=== PATIENT | female | born 1950 | race Caucasian/White ===

== ENCOUNTER 2023-01-28 03:39 | Inpatient (IN) | payer MEDICARE, OTHER ==
[2023-01-28] MEDS ORDERED: SODIUM CHLORIDE 0.9% 1,000 ML IV ONE (03:55)
[2023-01-28] MEDS ORDERED: MORPHINE SULFATE 4 MG/ML SYRINGE IV STA (03:55)
[2023-01-28] MEDS ORDERED: MORPHINE SULFATE 4 MG/ML SYRINGE IVP STA (03:55)
[2023-01-28 04:18] LABS: Basophils % (A) 0 %; Eosinophils # (A) 0.4 k/uL (0-0.7); Eosinophils % (A) 2 %; HCT 35.3 % (34.0-46.0); HGB 11.7 gm/dL (11.4-16.0); Lymphocytes # (A) 1.7 k/uL (1.0-4.8); Lymphocytes % (A) 8 %; MCH 31.6 pg (25.0-35.0); MCHC 33.1 g/dL (31.0-37.0); MCV 95.5 fL (80.0-100.0); Monocytes # (A) 0.8 k/uL (0-1.0); Monocytes % (A) 4 %; Neutrophils # (A) 18.8 k/uL (1.3-7.7); Neutrophils % (A) 86 %; Platelet Count 286 k/uL (150-450); RDW 12.5 % (11.5-15.5); WBC 21.8 k/uL (3.8-10.6)
[2023-01-28 04:30] LABS: African American GFR (CKD) >90 (>60 ml/min/1.73 sqM); Anion Gap 6 mmol/L; Blood Urea Nitrogen 13 mg/dL (7-17); Carbon Dioxide 26 mmol/L (22-30); Chloride 106 mmol/L (98-107); Glucose 210 mg/dL (74-99); Non-African American GFR(CKD) >90 (>60 ml/min/1.73 sqM); Potassium 3.6 mmol/L (3.5-5.1); Sodium 138 mmol/L (137-145)
[2023-01-28 04:33] LABS: Prothrombin Time 10.2 sec (9.0-12.0)
[2023-01-28 04:58] LABS: Partial Thromboplastin Time 19.4 sec (22.0-30.0)
[2023-01-28] MEDS ORDERED: CYCLOBENZAPRINE 5 MG TAB PO STA (05:00)
[2023-01-28] MEDS ORDERED: NALOXONE 0.4 MG/ML 1 ML VIAL IV PRN ×2 (05:25→11:01)
[2023-01-28] MEDS ORDERED: MORPHINE SULFATE 4 MG/ML SYRINGE IV PRN (05:25)
--- NOTE | 2023-01-28 05:31 | ED ---
General Adult HPI - General Chief complaint: Fall Stated complaint: Fall Time Seen by Provider: 01/28/23 03:44 Source: patient, EMS, RN notes reviewed, old records reviewed Mode of arrival: EMS Limitations: no limitations - History of Present Illness Initial comments: Patient is a 73-year-old female with past medical history remarkable for hypertension who presents emergency Department following a mechanical fall. States she tripped and lost her balance and fell onto her left side. Currently complaining of left shoulder and left hip pain. Did not hit her head. No loss consciousness. No other pain at this time. Is not on blood thinners. Presents over concern for injury to the left shoulder and left hip. Denies syncopal episode. Denies any lightheadedness. Denies chest pain, shortness of breath, abdominal pain, nausea, vomiting, urinary complaints. No fevers or sick contacts. - Related Data Allergies Allergy/AdvReac Type Severity Reaction Status Date / Time No Known Allergies Allergy Verified 01/28/23 03:49 Review of Systems ROS Statement: Those systems with pertinent positive or pertinent negative responses have been documented in the HPI. Review of Systems: CONST: Denies fever EYES: Denies blurry vision ENT: Denies nasal congestion C/V: Denies Chest pain RESP: Denies shortness of breath GI: Denies abdominal pain : Denies dysuria SKIN: Denies rash. MSK: Endorses left shoulder pain, left hip pain. NEURO: Denies headache ROS Other: All systems not noted in ROS Statement are negative. Past Medical History Past Medical History: Diabetes Mellitus, Hypertension History of Any Multi-Drug Resistant Organisms: None Reported Past Surgical History: Hysterectomy Additional Past Surgical History / Comment(s): Shakira Past Psychological History: No Psychological Hx Reported Smoking Status: Never smoker Past Alcohol Use History: None Reported Past Drug Use History: None Reported General Exam - General Exam Comments Initial Comments: General: Appears in moderate distress secondary to pain. HEAD: Normal with no signs of head trauma. EYES: PERRLA, EOMI, conjunctiva normal, no discharge. ENT: Hearing grossly intact, normal oropharynx. RESPIRATORY: Clear breath sounds bilaterally. No wheezes, rales, or rhonchi. C/V: Regular rate and rhythm. S1 and S2 auscultated, peripheral pulses 2+ and intact throughout ABD: Abd is soft, nontender, nondistended EXT: Decreased range of motion of left shoulder and left hip secondary to pain. Left lower extremity is externally rotated and shortened. No open fracture. Left shoulder has what appears to be a deformity near the humeral head. Tenderness to palpation here. Reduced range of motion secondary to a. Neurovascular intact in both extremities. SKIN: No rashes or lesions observed on exposed skin. NEURO: Alert and oriented 4. No focal sensory strength deficits. Limitations: no limitations Course Vital Signs 01/28/23 01/28/23 03:42 04:30 Temperature 98.7 F Pulse Rate 72 77 Respiratory 20 19 Rate Blood Pressure 187/89 148/86 O2 Sat by Pulse 96 93 L Oximetry Medical Decision Making - Medical Decision Making Was pt. sent in by a medical professional or institution (, PA, PROCUREMENT CLERK, urgent care, hospital, or fdc...) When possible be specific @ -No Did you speak to anyone other than the patient for history (EMS, parent, family, police, friend...)? What history was obtained from this source @ -No Did you review nursing and triage notes (agree or disagree)? Why? @ -I reviewed and agree with nursing and triage notes Were old charts reviewed (outside hosp., previous admission, EMS record, old EKG, old radiological studies, urgent care reports/EKG's, fdc records)? Report findings @ -No old charts were reviewed Differential Diagnosis (chest pain, altered mental status, abdominal pain women, abdominal pain men, vaginal bleeding, weakness, fever, dyspnea, syncope, headache, dizziness, GI bleed, back pain, seizure, CVA, palpatations, mental health, musculoskeletal)? @ -Differential Musculoskeletal Muscular strain, contusion, ligament sprain, fracture, arthritis, septic arthritis, bursitis, cellulitis, muscle spasm, nerve compression, DVT, arterial occlusion, herpes zoster, electrolyte abnormality, tumor.... This is not meant to be in all inclusive list EKG interpreted by me (3pts min.). @ -As above X-rays interpreted by me (1pt min.). @ -Chest x-ray, left hip x-ray remarkable for what appears to be a left intertrochanteric fracture as well as a comminuted left humeral head fracture. CT interpreted by me (1pt min.). @ -None done U/S interpreted by me (1pt. min.). @ -None done What testing was considered but not performed or refused? (CT, X-rays, U/S, labs)? Why? @ -None What meds were considered but not given or refused? Why? @ -None Did you discuss the management of the patient with other professionals (professionals i.e. , PA, PROCUREMENT CLERK, lab, RT, psych nurse, social service technician, copier operator, teacher, correctional security officer, rifle case repairer)? Give summary @ -Discussed the case with on-call orthopedics Dr. Mario who accepted the admission and requested CT imaging for operative planning. Discuss the case with Dr. Araya of medicine who accepted consult Was smoking cessation discussed for >3mins.? @ -No Was critical care preformed (if so, how long)? @ -No Were there social determinants of health that impacted care today? How? (Homelessness, low income, unemployed, alcoholism, drug addiction, transpo rtation, low edu. Level, literacy, decrease access to med. care, nursing home, rehab)? @ -No Was there de-escalation of care discussed even if they declined (Discuss DNR or withdrawal of care, Hospice)? DNR status @ -No What co-morbidities impacted this encounter? (DM, HTN, Smoking, COPD, CAD, Cancer, CVA, ARF, Chemo, Hep., AIDS, mental health diagnosis, sleep apnea, morbid obesity)? @ -None Was patient admitted / discharged? Hospital course, mention meds given and route, prescriptions, significant lab abnormalities, going to OR and other pertinent info. @ -Patient presents with a mechanical fall at home. Does not meet trauma criteria. His thinners. No loss of consciousness. CT imaging is required at this time. No head trauma. However we will obtain plain films of the left shoulder, left hip. She was in agreement with this plan. Basic labs also be obtained. Vital signs except for limits. Imaging remarkable for what appears to be a comminuted left humeral head fracture as well as a left intertrochanteric fracture. Labs are remarkable for a leukocytosis of 21 with no clear etiology and could be reactive. We will check a urine on her. She was in agreement with this plan. We discussed results and she expressed understanding. She requires admission for operative repair. Patient made nothing by mouth. I spoke with on-call orthopedics Dr. Mario who accepted the patient under his service and requested CT imaging for operative planning which was ordered and is still pending at this time. I spoke with the medicine neon technician Dr. Araya who accepted the patient is a consult. Patient admitted in stable condition. Undiagnosed new problem with uncertain prognosis? @ -No Drug Therapy requiring intensive monitoring for toxicity (Heparin, Nitro, Insulin, Cardizem)? @ -No Were any procedures done? @ -No Diagnosis/symptom? @ -Fall, left humeral head fracture, left intertrochanteric fracture Acute, or Chronic, or Acute on Chronic? @ -Acute Uncomplicated (without systemic symptoms) or Complicated (systemic symptoms)? @ -Complicated Side effects of treatment? @ -No Exacerbation, Progression, or Severe Exacerbation? @ -No Poses a threat to life or bodily function? How? (Chest pain, USA, SD, pneumonia, PE, COPD, DKA, ARF, appy, cholecystitis, CVA, Diverticulitis, Homicidal, Suicidal, threat to staff... and all critical care pts) @ -yes - Lab Data Result diagrams: 01/28/23 04:02 01/28/23 04:02 Lab Results 01/28/23 01/28/23 01/28/23 Range/Units 04:02 04:02 04:02 WBC 21.8 H (3.8-10.6) k/uL RBC 3.70 L (3.80-5.40) m/uL Hgb 11.7 (11.4-16.0) gm/dL Hct 35.3 (34.0-46.0) % MCV 95.5 (80.0-100.0) fL MCH 31.6 (25.0-35.0) pg MCHC 33.1 (31.0-37.0) g/dL RDW 12.5 (11.5-15.5) % Plt Count 286 (150-450) k/uL MPV 8.0 Neutrophils % 86 % Lymphocytes % 8 % Monocytes % 4 % Eosinophils % 2 % Basophils % 0 % Neutrophils # 18.8 H (1.3-7.7) k/uL Lymphocytes # 1.7 (1.0-4.8) k/uL Monocytes # 0.8 (0-1.0) k/uL Eosinophils # 0.4 (0-0.7) k/uL Basophils # 0.0 (0-0.2) k/uL PT 10.2 (9.0-12.0) sec INR 1.0 (<1.2) APTT 19.4 L (22.0-30.0) sec Sodium 138 (137-145) mmol/L Potassium 3.6 (3.5-5.1) mmol/L Chloride 106 (98-107) mmol/L Carbon Dioxide 26 (22-30) mmol/L Anion Gap 6 mmol/L BUN 13 (7-17) mg/dL Creatinine 0.52 (0.52-1.04) mg/dL Est GFR (CKD-EPI)AfAm >90 (>60 ml/min/1.73 sqM) Est GFR (CKD-EPI)NonAf >90 (>60 ml/min/1.73 sqM) Glucose 210 H (74-99) mg/dL Calcium 9.0 (8.4-10.2) mg/dL Blood Type Blood Type Confirm Blood Type Recheck Bld Type Recheck Status Antibody Screen Spec Expiration Date 01/28/23 01/28/23 Range/Units 04:02 04:25 WBC (3.8-10.6) k/uL RBC (3.80-5.40) m/uL Hgb (11.4-16.0) gm/dL Hct (34.0-46.0) % MCV (80.0-100.0) fL MCH (25.0-35.0) pg MCHC (31.0-37.0) g/dL RDW (11.5-15.5) % Plt Count (150-450) k/uL MPV Neutrophils % % Lymphocytes % % Monocytes % % Eosinophils % % Basophils % % Neutrophils # (1.3-7.7) k/uL Lymphocytes # (1.0-4.8) k/uL Monocytes # (0-1.0) k/uL Eosinophils # (0-0.7) k/uL Basophils # (0-0.2) k/uL PT (9.0-12.0) sec INR (<1.2) APTT (22.0-30.0) sec Sodium (137-145) mmol/L Potassium (3.5-5.1) mmol/L Chloride (98-107) mmol/L Carbon Dioxide (22-30) mmol/L Anion Gap mmol/L BUN (7-17) mg/dL Creatinine (0.52-1.04) mg/dL Est GFR (CKD-EPI)AfAm (>60 ml/min/1.73 sqM) Est GFR (CKD-EPI)NonAf (>60 ml/min/1.73 sqM) Glucose (74-99) mg/dL Calcium (8.4-10.2) mg/dL Blood Type B Positive Blood Type Confirm B Positive Blood Type Recheck No Previous Record Bld Type Recheck Status CABO Indicated Antibody Screen NEGATIVE Spec Expiration Date 01/31/2023 - 2301 - EKG Data -: EKG Interpreted by Me EKG Comments: 12-lead Electrocardiogram Interpretation Note EKG was reviewed and interpreted by myself. 12-lead ECG performed at 0343 is interpreted by me as revealing normal sinus rhythm at a rate of 72 beats per minute. [place] is normal. SC interval is 150 ms, QRS duration is 93 ms, QTc is 420 ms.. There were no ST or T wave abnormalities to suggest myocardial ischemia or injury. R wave progression across the precordium was satisfactory. By my interpretation this EKG is non-diagnostic for acute ischemia. Disposition Clinical Impression: Fall, Fracture of head of left humerus, Intertrochanteric fracture of left hip Disposition: ADMITTED IP TO THIS HOSP Condition: Serious Time of Disposition: 05:28
--- NOTE | 2023-01-28 06:17 | XR ---
EXAMINATION TYPE: XR chest 1V DATE OF EXAM: 01/28/2023 4:24 AM COMPARISON: None TECHNIQUE: XR chest 1V Frontal view of the chest. CLINICAL INDICATION:Female, 73 years old with history of fall; FINDINGS: Lungs/Pleura: There is no evidence of pleural effusion, focal consolidation, or pneumothorax. Pulmonary vascularity: Pulmonary vascular congestion. Heart/mediastinum: Cardiomediastinal silhouette is enlarged and stable. Musculoskeletal: No acute osseous pathology. IMPRESSION: Cardiomegaly and mild pulmonary vascular congestion. Correlate with BNP for congestive heart failure.
--- NOTE | 2023-01-28 06:21 | XR ---
EXAMINATION TYPE: XR shoulder limited LT DATE OF EXAM: 01/28/2023 4:24 AM INDICATION: Patient age:Female; 73 years old; Reason for study: fall; COMPARISON: CT left shoulder of the same date. TECHNIQUE: The left shoulder was examined in AP and lateral projections. FINDINGS: Acute mildly displaced comminuted fracture of the left proximal humerus at the neck with extension in to the greater tuberosity. There is approximately 1.9 cm of shortening. Additionally there is a minim ally displaced fracture of the inferior aspect of the glenoid with lucent line identified and better appreciated on CT. No dislocation. AC joint appears intact mild arthropathy. Mild surrounding soft ti ssue edema. Pulmonary vascular congestion identified within the visualized portions of the chest. IMPRESSION: 1. Acute mildly displaced comminuted fracture of the left proximal humerus. 2. Acute minimally displaced fracture inferior aspect of glenoid.
--- NOTE | 2023-01-28 06:25 | CT ---
EXAMINATION TYPE: CT shoulder LT wo con CT DLP: 336 mGycm, Automated exposure control for dose reduction was used. DATE OF EXAM: 01/28/2023 5:47 AM COMPARISON: Left shoulder radiograph the same date. CLINICAL INDICATION:Female, 73 years old with history of fracture; [facility], TECHNIQUE: Axial images were obtained of the left shoulder without the use of IV contrast. Additiona l coronal and sagittal reformatted images and soft tissue and bone window were obtained for review. 3 -D reconstruction was created on a separate workstation. FINDINGS: Acute mildly displaced comminuted fracture of the proximal humeral neck with approximately 8 mm of shortening. No dislocation. Fracture extends into the greater tuberosity. There is surroundin g edema. Additional mildly displaced comminuted fracture of the inferior glenoid identified. Moderate AC joint arthropathy with joint space narrowing, subchondral cystic change, and capsular hypertrophy . There is some inferior spurring demonstrated. The visualized portions of the chest are unremarkable. IMPRESSION: 1. Acute mildly displaced comminuted fracture of the left proximal humerus. 2. Acute moderately displaced, fracture of the left inferior glenoid. 3. Moderate AC joint arthropathy.
--- NOTE | 2023-01-28 06:27 | XR ---
EXAMINATION TYPE: XR Hip LT and AP Pelvis DATE OF EXAM: 01/28/2023 4:24 AM INDICATION: Patient age:Female; 73 years old; Reason for study: fall shortened leg; [facility]. COMPARISON: CT pelvis of the same date TECHNIQUE: The left hip was examined in the frontal and lateral projections and a AP pelvis. FINDINGS: Acute mildly displaced comminuted left proximal femoral intratrochanteric fracture. No disl ocation. Degenerative changes of the visualized lumbar spine. Pelvic phleboliths identified. Addition al degenerative changes of the pubic symphysis. IMPRESSION: Acute mildly displaced comminuted left proximal femoral intratrochanteric fracture.
--- NOTE | 2023-01-28 06:30 | CT ---
EXAMINATION TYPE: CT pelvis wo con CT DLP: 363.8 mGycm, Automated exposure control for dose reduction was used. DATE OF EXAM: 01/28/2023 5:49 AM COMPARISON: Left hip/pelvic radiograph 01/28/2023. CLINICAL INDICATION:Female, 73 years old with history of fracture; TECHNIQUE: Standard CT of the pelvis without IV or oral contrast. Lack of IV or oral contrast limit s evaluation of solid and hollow organ viscera. Coronal and sagittal reformats were performed. 3-D re formats were created on a separate workstation. FINDINGS: BLADDER: Unremarkable REPRODUCTIVE: The uterus is surgically absent. BOWEL: The appendix is within normal limits. Scattered diverticula particularly versus without eviden ce for acute diverticulitis. No evidence of bowel obstruction. PERITONEUM: No evidence of pneumoperitoneum or free fluid. VASCULATURE: Atherosclerotic calcification of the visualized aorta and its branches. Few pelvic phleb oliths. MUSCULOSKELETAL: Acute mildly displaced comminuted intratrochanteric fracture of the left proximal fe mur. Mild surrounding soft tissue edema. No dislocation. Degenerative changes of the pubic symphysis and bilateral SI joints. Mild osteophytic changes of the right hip. LYMPH NODES: No gross evidence for lymphadenopathy. SOFT TISSUE/ABDOMINAL WALL: Tiny fat filled umbilical hernia. IMPRESSION: Acute comminuted mildly displaced left proximal femur intratrochanteric fracture.
--- NOTE | 2023-01-28 06:46 | P.CONS ---
History of Present Illness - Reason for Consult Consult date: 01/28/23 preop clearance - Chief Complaint fall - History of Present Illness 73 year old female with hypertension , hypothyroid , DM coming in after an accidental fall, she tripped and fell hit her couch. denies any LOC, head injury , nausea , vomiting, seizure like activity , dizziness, shortness of breath or chest pain, but she could not get up . she is not on blood thinners. denies any history of falls. she presented complaining of left hip and shoulder pain , and found to have acute fracture of the left hip and shoulder denies smoking, illicit drugs or alcohol PMHX DM , HTN, hypothyroid review of systems Pertinent positives as noted in HPI. All other systems were reviewed and are n egative Constitutional: No acute distress, conversant, pleasant Eyes: Anicteric sclerae, moist conjunctiva, Pupils equal round reactive to light ENMT: NC/AT Oropharynx clear, no erythema, or exudates Neck: Supple, no masses, or JVD No carotid bruits No thyromegaly Lungs: Clear to auscultation Clear to percussion Normal respiratory effort, no accessory muscle use Cardiovascular: Heart regular in rate and rhythm, No murmurs, gallops, or rubs No peripheral edema Abdominal: Soft Nontender, no guarding, rebound or rigidity Abdomen moving with respiration Normoactive bowel sounds No hepatomegaly, No splenomegaly No palpable mass No abdominal wall hernia noted Skin: Normal temperature, tone, texture, turgor No induration No subcutaneous nodules No rash, lesions No ulcers Extremities: No digital cyanosis No clubbing Pedal pulses intact and symmetrical Radial pulses intact and symmetrical No calf tenderness Psychiatric: Alert and oriented to person, place and time Appropriate affect fair judgement Neuro Muscles Strength 5/5 in right upper and lower extremitiy , severe pain over the left side limiting exam Sensation to light touch grossly present throughout Cranial nerves II-XII grossly intact Lymphatics: no palpable cervical or supraclavicular lymph nodes Past Medical History Past Medical History: Diabetes Mellitus, Hypertension History of Any Multi-Drug Resistant Organisms: None Reported Past Surgical History: Hysterectomy Additional Past Surgical History / Comment(s): Whipple Past Psychological History: No Psychological Hx Reported Smoking Status: Never smoker Past Alcohol Use History: None Reported Past Drug Use History: None Reported Medications and Allergies Allergies Allergy/AdvReac Type Severity Reaction Status Date / Time No Known Allergies Allergy Verified 01/28/23 03:49 Physical Exam Vitals: Vital Signs Temp Pulse Resp BP Pulse Ox 01/28/23 05:00 65 18 150/97 100 01/28/23 04:30 77 19 148/86 93 L 01/28/23 03:42 98.7 F 72 20 187/89 96 Intake and Output 01/27/23 01/27/23 01/28/23 14:59 22:59 06:59 Other: Weight 68.039 kg Results CBC & Chem 7: 01/28/23 04:02 01/28/23 04:02 Labs: Abnormal Lab Results - Last 24 Hours (Table) 01/28/23 01/28/23 01/28/23 Range/Units 04:02 04:02 04:02 WBC 21.8 H (3.8-10.6) k/uL RBC 3.70 L (3.80-5.40) m/uL Neutrophils # 18.8 H (1.3-7.7) k/uL APTT 19.4 L (22.0-30.0) sec Glucose 210 H (74-99) mg/dL Assessment and Plan Assessment: 73 year old female with fracture of the left hip and shoulder, denies any recent hospital stay , denies any rcent episode of CHF, NH, seizures, arrhythmia . she is active at baseline >4 METS with no limitation related to chest pain or SOB. she has history of DM and Hypertension. patient can proceed to planned surgery of left shoulder and hip repair with moderate but acceptable perioperative cardiovascular risk with no modifiable risk factors at this time EKG and labs reviewed , blood work showed leukocytosis suspected to be reactive , no identifiable focus of infection imaging reviewed CT of the shoulder and pelvis showed fractures in both the left shoulder and hip renal function unremarkable Na 138, K 3.6, BUN 13 , Cr 0.5 hypertension continue atenolol 50 mg daily po DM hold oral hypoglycemic agent insulin sliding scale hypothyroid resume levothyroxin full code DVT PPX lovenox 40 mg sc daily thank you for this consultation
[2023-01-28] MEDS: SODIUM CHLORIDE 0.9% 1,000 ML IV SCH ×2 (06:50→17:00)
[2023-01-28] MEDS ORDERED: DEXTROSE 50% SYRINGE 50 ML IVP PRN ×2 (06:51)
[2023-01-28] MEDS: LEVOTHYROXINE 25 MCG TAB PO SCH (06:57)
[2023-01-28] MEDS: INSULIN ASPART (NovoLOG) 100 UNIT/ML VIAL SQ SCH ×5 (07:04→20:28)
[2023-01-28 07:59] LABS: Glucose,Whole Blood 147 mg/dL (70-110)
[2023-01-28] MEDS: HEPARIN SODIUM,PORCINE/PF 5,000 UNIT/0.5 ML SYRINGE SQ SCH ×2 (08:36→16:59)
--- NOTE | 2023-01-28 09:15 | P.HPOR ---
History of Present Illness H&P Date: 01/28/23 Chief Complaint: Left hip, left shoulder pain. This is a 73-year-old female who presented to the emergency department late last evening after falling and sustaining injury to her left hip and left shoulder. She states that her shoe got caught on the hardwood floor and she tripped. We will consult is for orthopedic evaluation of her left shoulder and left hip fractures. She is admitted to our service for surgical intervention and care. Past Medical History Past Medical History: Diabetes Mellitus, Hypertension History of Any Multi-Drug Resistant Organisms: None Reported Past Surgical History: Hysterectomy Additional Past Surgical History / Comment(s): Shakira Past Psychological History: No Psychological Hx Reported Smoking Status: Never smoker Past Alcohol Use History: None Reported Past Drug Use History: None Reported Medications and Allergies Allergies Allergy/AdvReac Type Severity Reaction Status Date / Time No Known Allergies Allergy Verified 01/28/23 03:49 Physical Examination This is a 73-year-old female in no acute distress. She is alert and oriented 3. Exam of the head neck reveal no obvious deformity. She has full cervical spine motion without difficulty or pain. Exam of the upper extremities reveals sling in place on the left. There is soft tissue swelling to the shoulder and upper arm on the left. She has full finger motion bilaterally. Neurovascular status to the upper extremities is intact. Exam of the lower extremities reveals shortening and external rotation to her left leg. She has full foot and ankle motion bilaterally. There is pain with any motion to the left leg. Neurovascular status to the lower extremities is intact. Results X-rays and CT of the pelvis and left hip reveal a minimally displaced intertrochanteric fracture of the left hip. No other fractures in the hip or pelvis are identified. X-rays and CT of the left shoulder reveal a comminuted proximal humerus fracture with avulsion of the radial tuberosity. There is also a minimally displaced glenoid fracture noted. - Labs Labs: Abnormal Lab Results - Last 24 Hours (Table) 01/28/23 01/28/23 01/28/23 Range/Units 04:02 04:02 04:02 WBC 21.8 H (3.8-10.6) k/uL RBC 3.70 L (3.80-5.40) m/uL Neutrophils # 18.8 H (1.3-7.7) k/uL APTT 19.4 L (22.0-30.0) sec Glucose 210 H (74-99) mg/dL POC Glucose (mg/dL) (70-110) mg/dL 01/28/23 Range/Units 07:57 WBC (3.8-10.6) k/uL RBC (3.80-5.40) m/uL Neutrophils # (1.3-7.7) k/uL APTT (22.0-30.0) sec Glucose (74-99) mg/dL POC Glucose (mg/dL) 147 H (70-110) mg/dL H & H 01/28/23 Range/Units 04:02 Hgb 11.7 (11.4-16.0) gm/dL Hct 35.3 (34.0-46.0) % Coagulation 01/28/23 Range/Units 04:02 INR 1.0 (<1.2) Result Diagrams: 01/28/23 04:02 01/28/23 04:02 Assessment and Plan (1) Fall Current Visit: Yes Status: Acute Code(s): W19.XXXA - UNSPECIFIED FALL, INITIAL ENCOUNTER SNOMED Code(s): 4962749 (2) Fracture of head of left humerus Current Visit: Yes Status: Acute Code(s): S42.292A - OTH DISP FX OF UPPER END OF LEFT HUMERUS, INIT FOR CLOS FX SNOMED Code(s): 848353539 (3) Intertrochanteric fracture of left hip Current Visit: Yes Status: Acute Code(s): S72.142A - DISPLACED INTERTROCHANTERIC FRACTURE OF LEFT FEMUR, INIT SNOMED Code(s): 169505033 (4) Fracture of glenoid process of left scapula Current Visit: Yes Status: Acute Code(s): S42.142A - DISP FX OF GLENOID CAV ITY OF SCAPULA, LEFT SHOULDER, INIT SNOMED Code(s): 5064357 Plan: The clinical and x-ray/computed tomography scan findings are discussed with the patient. We will take her to surgery today for intertrochanteric nail insertion total left hip. It is recommended she be seen by a traumatologist for the shoulder fracture within the next couple of weeks. We will fix her hip today and plan discharged to home early this week and arrange for follow-up regarding the shoulder.
[2023-01-28] MEDS ORDERED: IV FLUID CONTINUATION 1,000 ML IV ONE (09:33)
[2023-01-28] MEDS ORDERED: SODIUM CHLORIDE 0.9% 50 ML with ceFAZolin 2,000 MG IV ONE ×2 (09:33)
[2023-01-28] MEDS ORDERED: NEOSTIGMINE 1 MG/ML 10 ML VIAL ONE (09:37)
[2023-01-28] MEDS ORDERED: PROPOFOL 10 MG/ML 20 ML VIAL IV ONE (09:37)
[2023-01-28] MEDS ORDERED: LIDOCAINE 2% INJ 20 MG/ML (2 ML VIAL) ONE (09:37)
[2023-01-28] MEDS ORDERED: fentaNYL (PF) 50 MCG/ML 2 ML AMP ONE (09:37)
[2023-01-28] MEDS ORDERED: ROCURONIUM 10 MG/ML (5 ML VIAL) IV ONE (09:37)
[2023-01-28] MEDS ORDERED: MIDAZOLAM 2 MG/2 ML VIAL ONE (09:37)
[2023-01-28] MEDS ORDERED: PHENYLEPHRINE-0.9% NACL SYG 1,000 MCG/10 ML SYRINGE ONE (09:37)
[2023-01-28] MEDS ORDERED: ceFAZolin 1,000 MG VIAL ONE (09:37)
[2023-01-28] MEDS ORDERED: GLYCOPYRROLATE 0.2 MG/ML 2 ML VIAL ONE (09:37)
[2023-01-28] MEDS ORDERED: SODIUM CHLORIDE 0.9% 100 ML BAG ONE (09:37)
[2023-01-28] MEDS ORDERED: SUCCINYLCHOLINE CHLORIDE 200 MG/10 ML VIAL IV ONE (09:37)
--- NOTE | 2023-01-28 10:31 | P.OP ---
Date of Procedure: 01/28/23 Procedure(s) Performed: PREOPERATIVE DIAGNOSIS: Left hip intertrochanteric fracture. POSTOPERATIVE DIAGNOSIS: Left hip intertrochanteric fracture. OPERATION: Left hip intertrochanteric fracture closed reduction and intramedullary nailing using Synthes IT nail. LINEN TECH: Shila Loza PA-C (Assistance with: Patient positioning, retraction, exposure, hemostasis, fixation, irrigation, closure, dressing) ANESTHESIA: General ESTIMATED BLOOD LOSS: 50 mL. COMPLICATIONS: None OPERATIVE FINDINGS: See dictation INDICATIONS: Maribel is a 73-year-old female with a history of left intertrochanteric fracture due to a fall. She also has a comminuted fracture of the ipsilateral proximal humerus and glenoid. The patient presents to the operating room today for closed reduction and intramedullary nailing of the hip fracture. I discussed the risks of surgery in detail as being inclusive of but not limited to: Bleeding, infection, scarring, discomfort, blood vessel and/or nerve damage, need for further surgery, malunion, nonunion, gait disturbance including persistent or permanent limp, limb length inequality, arthritis, hardware failure, blood clot, pulmonary embolism, , and other risks. The consent form has been signed. PROCEDURE: After appropriate consent was obtained, the patient was taken to the operating room and placed in supine position. Gen. anesthetic was administered and after confirmation of adequate anesthesia, the patient was carefully placed in the supine position on the operating room table in the fracture table. The patient was placed up against a well-padded peroneal post. Care was taken to make sure about that all pressure points were adequately padded and that the fractured left proximal humerus was placed in a safe position. The affected leg was placed in boot traction and the unaffected leg was placed in a well leg francisco. Using gentle longitudinal distraction as well as adduction and internal rotation, the fracture was reduced as assessed by AP and lateral C-arm imaging. Once a satisfactory reduction had been obtained, the thigh was prepped and draped in the usual aseptic fashion using ChloraPrep. Ioban drape was used for the case and the patient received intravenous antibiotics prior to incision. Timeout was called, confirming patient identity, side, procedure, and administration of antibiotics. The incision was then created with a #10 blade just proximal to the greater trochanter laterally. It was carried down through skin into the subcutaneous tissues and through fascia. Hemostasis was obtained using electrocautery. The tip of the greater trochanter was palpated and a guide pin was placed at the tip and directed into the femoral shaft as assessed with C-arm imaging. Once optimal pin position had been obtained, a 17 mm reamer was used over the guide pin to create a path for the IT nail. IT nail selected was assembled to the insertion jig on the back table and bushings were checked for accuracy. The nail was then inserted using gentle mallet taps until it was fully deployed. The amount of rotation of the implant was assessed based on the amount of anteversion of the femoral neck. This was rotated to match the patient's femoral neck anteversion and the helical blade guide was placed through the insertion jig and through an incision on the lateral side of the thigh more distal than the first. Once this guide was placed against the lateral cortex of the femur, a guide pin was drilled into the central region of the femoral head and neck as based on AP and lateral C-arm imaging. Once optimal pin position had been obtained, the guidewire was measured and appropriately sized helical blade was selected. The path for the helical blade was prepared using a tapered reamer. The helical blade was then inserted using gentle mallet taps along the guidewire until it was fully deployed. There was no displacement of the fracture during this step. The anti-rotation screw was locked down and the insertion apparatus for the helical blade was removed. The guide pin was then removed. Traction was then removed from the leg and the distal interlock was placed through the jig using standard technique. Finally, the insertion jig for the nail was removed and final C-arm images were taken and saved in both AP and lateral planes. The final x-rays showed satisfactory positioning of the implant and good reduction of the fracture. The top of the nail was plugged with a small quantity of bone wax and the incisions were then thoroughly irrigated with normal saline. Final hemostasis was obtained using electrocautery and closure of the fascia was performed using 0-Vicryl suture. 2-0 Vicryl suture was used in the subcutaneous tissues and [place] were used for the skin. Sterile dressing was then applied and the patient was carefully removed from the fracture table frame and placed onto the stretcher. The patient tolerated the procedure well. There were no complications and 50 mL of blood loss. The patient was then subsequently transferred to recovery room in stable condition. Sponge and needle counts were correct.
--- NOTE | 2023-01-28 10:43 | XR ---
Intraoperative/procedural fluoroscopic services were provided for left hip IT nail. Total fluoroscopy time is 38.7 seconds with a total of 2 submitted images to PACS. Total DAP 1.4245 Gycm2. Please see the operative note for further details.
[2023-01-28] MEDS ORDERED: HYDROmorphone 0.5 MG/0.5 ML SYRINGE IVP PRN (11:01)
[2023-01-28] MEDS ORDERED: TEMAZEPAM 15 MG CAP PO PRN (11:01)
[2023-01-28 12:03] LABS: Glucose,Whole Blood 146 mg/dL (70-110)
[2023-01-28] MEDS: LACTATED RINGERS 1,000 ML IV SCH (12:17)
[2023-01-28] MEDS: atenoloL 50 MG TAB PO SCH (12:17)
[2023-01-28 13:29] LABS: Basophils % (A) 0 %; Eosinophils # (A) 0.1 k/uL (0-0.7); Eosinophils % (A) 0 %; HCT 32.8 % (34.0-46.0); HGB 10.8 gm/dL (11.4-16.0); Lymphocytes # (A) 0.5 k/uL (1.0-4.8); Lymphocytes % (A) 3 %; MCHC 32.9 g/dL (31.0-37.0); MCV 97.2 fL (80.0-100.0); Mean Platelet Volume 8.8; Monocytes # (A) 0.9 k/uL (0-1.0); Monocytes % (A) 5 %; Neutrophils # (A) 14.8 k/uL (1.3-7.7); Neutrophils % (A) 91 %; Platelet Count 255 k/uL (150-450); RBC 3.38 m/uL (3.80-5.40); RDW 12.6 % (11.5-15.5); WBC 16.3 k/uL (3.8-10.6)
[2023-01-28] MEDS: HYDROmorphone 0.5 MG/0.5 ML SYRINGE IVP PRN ×2 (14:05→20:32)
[2023-01-28] MEDS: MULTIVITAMINS, THERA 1 EACH TAB PO SCH (14:33)
[2023-01-28 16:51] LABS: Glucose,Whole Blood 119 mg/dL (70-110)
[2023-01-28 20:20] LABS: Glucose,Whole Blood 129 mg/dL (70-110)
[2023-01-28] MEDS: SENNOSIDES-DOCUSATE SODIUM 1 EACH TAB PO SCH (20:30)
[2023-01-28] MEDS: HYDROcodone/APAP 5-325MG 1 EACH TAB PO PRN (21:32)
[2023-01-29] MEDS: SODIUM CHLORIDE 0.9% 1,000 ML IV SCH (00:49)
[2023-01-29] MEDS: LACTATED RINGERS 1,000 ML IV SCH ×3 (00:51→18:06)
[2023-01-29] MEDS: HYDROmorphone 0.5 MG/0.5 ML SYRINGE IVP PRN ×3 (00:52→15:28)
[2023-01-29] MEDS: HEPARIN SODIUM,PORCINE/PF 5,000 UNIT/0.5 ML SYRINGE SQ SCH ×3 (00:52→15:28)
[2023-01-29 04:02] LABS: Appearance,Urine Cloudy (Clear); Bacteria,Urine Rare /hpf; Bilirubin,Urine Negative (Negative); Blood,Urine Moderate (Negative); Color,Urine Yellow; Glucose,Urine (UA) Negative (Negative); Hyaline Casts,Urine 1 /lpf (0-2); Ketones,Urine 1+ (Negative); Leukocyte Esterase,Urine Large (Negative); Mucus,Urine Rare /hpf; Nitrite,Urine Negative (Negative); Protein,Urine 1+ (Negative); RBC,Urine 56 /hpf (0-5); Specific Gravity,Urine 1.038 (1.001-1.035); Squamous Epithelial Cell,Urine <1 /hpf (0-4); Urobilinogen,Urine <2.0 mg/dL (<2.0); WBC,Urine 148 /hpf (0-5)
[2023-01-29 05:55] LABS: Glucose,Whole Blood 133 mg/dL (70-110)
[2023-01-29] MEDS: LEVOTHYROXINE 25 MCG TAB PO SCH (06:05)
[2023-01-29] MEDS: INSULIN ASPART (NovoLOG) 100 UNIT/ML VIAL SQ SCH ×4 (06:08→21:40)
[2023-01-29] MEDS: HYDROcodone/APAP 5-325MG 1 EACH TAB PO PRN ×2 (06:35→20:32)
[2023-01-29 08:42] LABS: BUN/Creat Ratio 17.57 Ratio (12.00-20.00); Blood Urea Nitrogen 12.3 mg/dL (9.0-27.0); Calcium 8.3 mg/dL (8.7-10.3); Carbon Dioxide 22.4 mmol/L (21.6-31.8); Chloride 109 mmol/L (96-109); Glucose 127 mg/dL (70-110); Potassium 3.8 mmol/L (3.5-5.5); Sodium 141 mmol/L (135-145)
--- NOTE | 2023-01-29 08:58 | P.PN ---
Subjective Progress Note Date: 01/29/23 Principal diagnosis: Left intertrochanteric hip fracture. Left proximal humerus fracture. Left glenoid fracture. Status post close reduction with insertion of intertrochanteric nail left hip. This is a 73-year-old female who presented to the emergency department late last evening after falling and sustaining injury to her left hip and left shoulder. She states that her shoe got caught on the hardwood floor and she tripped. We will consult is for orthopedic evaluation of her left shoulder and left hip fractures. She is admitted to our service for surgical intervention and care. 01/29/2023: The patient is postop day #1 status post close reduction with insertion of intertrochanteric nail of the left hip. The patient has no new complaints or concerns today. Vital signs are stable. We are also treating her for a proximal humerus and glenoid fracture on the left. Objective - Vital Signs Vital signs: Vital Signs Temp 98.9 F 01/29/23 06:50 Pulse 69 01/29/23 06:50 Resp 16 01/29/23 06:50 BP 123/73 01/29/23 06:50 Pulse Ox 98 01/29/23 06:50 FiO2 Intake & Output 01/28/23 01/29/23 01/29/23 18:59 06:59 18:59 Intake Total 1000 Output Total 1150 350 Balance -150 -350 Weight 68.039 kg Intake: IV 1000 Output: Urine 1100 350 Estimated Blood Loss 50 Other: Voiding Method Indwelling Catheter - Exam This is a pleasant 73-year-old female in no acute distress. She is alert and or iented at this time. Exam of the left shoulder reveals that the sling is in place. She is able to move her fingers without difficulty. Neurovascular status the upper extremities grossly intact. Exam of the lower extremities reveals that her dressings are clean, dry and intact. There is mild soft tissue swelling to the hip. Neurovascular status to the lower extremity is intact. - Labs CBC & Chem 7: 01/28/23 12:32 01/29/23 05:30 Labs: Abnormal Lab Results - Last 24 Hours (Table) 01/28/23 01/28/23 01/28/23 Range/Units 12:01 12:32 16:50 WBC 16.3 H (3.8-10.6) k/uL RBC 3.38 L (3.80-5.40) m/uL Hgb 10.8 L (11.4-16.0) gm/dL Hct 32.8 L (34.0-46.0) % Neutrophils # 14.8 H (1.3-7.7) k/uL Lymphocytes # 0.5 L (1.0-4.8) k/uL Glucose (70-110) mg/dL POC Glucose (mg/dL) 146 H 119 H (70-110) mg/dL Calcium (8.7-10.3) mg/dL Urine Appearance (Clear) Ur Specific [place] (1.001-1.035) Urine Protein (Negative) Urine Ketones (Negative) Urine Blood (Negative) Ur Leukocyte Esterase (Negative) Urine RBC (0-5) /hpf Urine WBC (0-5) /hpf Urine Bacteria (None) /hpf Urine Mucus (None) /hpf 01/28/23 01/29/23 01/29/23 Range/Units 20:18 03:53 05:30 WBC (3.8-10.6) k/uL RBC (3.80-5.40) m/uL Hgb (11.4-16.0) gm/dL Hct (34.0-46.0) % Neutrophils # (1.3-7.7) k/uL Lymphocytes # (1.0-4.8) k/uL Glucose 127 H (70-110) mg/dL POC Glucose (mg/dL) 129 H (70-110) mg/dL Calcium 8.3 L (8.7-10.3) mg/dL Urine Appearance Cloudy H (Clear) Ur Specific [place] 1.038 H (1.001-1.035) Urine Protein 1+ H (Negative) Urine Ketones 1+ H (Negative) Urine Blood Moderate H (Negative) Ur Leukocyte Esterase Large H (Negative) Urine RBC 56 H (0-5) /hpf Urine WBC 148 H (0-5) /hpf Urine Bacteria Rare H (None) /hpf Urine Mucus Rare H (None) /hpf 01/29/23 Range/Units 05:53 WBC (3.8-10.6) k/uL RBC (3.80-5.40) m/uL Hgb (11.4-16.0) gm/dL Hct (34.0-46.0) % Neutrophils # (1.3-7.7) k/uL Lymphocytes # (1.0-4.8) k/uL Glucose (70-110) mg/dL POC Glucose (mg/dL) 133 H (70-110) mg/dL Calcium (8.7-10.3) mg/dL Urine Appearance (Clear) Ur Specific [place] (1.001-1.035) Urine Protein (Negative) Urine Ketones (Negative) Urine Blood (Negative) Ur Leukocyte Esterase (Negative) Urine RBC (0-5) /hpf Urine WBC (0-5) /hpf Urine Bacteria (None) /hpf Urine Mucus (None) /hpf Assessment and Plan (1) Fall Current Visit: Yes Status: Acute Code(s): W19.XXXA - UNSPECIFIED FALL, INITIAL ENCOUNTER SNOMED Code(s): 4644190 (2) Fracture of head of left humerus Current Visit: Yes Status: Acute Code(s): S42.292A - OTH DISP FX OF UPPER END OF LEFT HUMERUS, INIT FOR CLOS FX SNOMED Code(s): 527588181 (3) Intertrochanteric fracture of left hip Current Visit: Yes Status: Acute Code(s): S72.142A - DISPLACED INTERTROCHANTERIC FRACTURE OF LEFT FEMUR, INIT SNOMED Code(s): 287789735 (4) Fracture of glenoid process of left scapula Current Visit: Yes Status: Acute Code(s): S42.142A - DISP FX OF GLENOID CAVITY OF SCAPULA, LEFT SHOULDER, INIT SNOMED Code(s): 4636809 Plan: The clinical findings are discussed with the patient. We discussed referring her to [facility] Khalil or [facility] Ferrera for further evaluation of her left shoulder. She is planning discharge to home versus rehab and will follow-up regarding the shoulder as an outpatient. We will begin physical therapy today to evaluate for discharge in the next day or 2.
[2023-01-29] MEDS: MULTIVITAMINS, THERA 1 EACH TAB PO SCH (09:13)
[2023-01-29] MEDS: atenoloL 50 MG TAB PO SCH (09:13)
[2023-01-29] MEDS ORDERED: CALCIUM CARBONATE 500 MG CHEWABLE PO PRN (09:21)
[2023-01-29 09:51] LABS: Basophils # (A) 0.02 X 10*3/uL (0.00-0.10); Basophils % (A) 0.3 %; Eosinophils # (A) 0.32 X 10*3/uL (0.04-0.35); Eosinophils % (A) 4.3 %; HCT 29.8 % (37.2-46.3); HGB 9.5 d/dL (12.0-15.0); Lymphocytes # (A) 1.61 X 10*3/uL (0.90-5.00); Lymphocytes % (A) 21.7 %; MCH 31.1 pg (27.0-32.0); MCHC 31.9 d/dL (32.0-37.0); MCV 97.7 FL (80.0-97.0); Mean Platelet Volume 10.4 FL (9.5-12.2); Monocytes # (A) 0.81 X 10*3/uL (0.20-1.00); Monocytes % (A) 10.9 %; NRBC Per 100 WBC 0 X 10*3/uL (0.00-0.01); Neutrophils # (A) 4.64 X 10*3/uL (1.80-7.70); Neutrophils % (A) 62.4 %; Platelet Count 232 X 10*3/uL (140-440); RBC 3.05 X 10*6/uL (4.10-5.20); RDW 13.1 % (11.5-14.5); WBC 7.43 X 10*3/uL (4.50-10.00)
[2023-01-29 11:15] LABS: Glucose,Whole Blood 164 mg/dL (70-110)
--- NOTE | 2023-01-29 14:22 | P.PN ---
Subjective Progress Note Date: 01/29/23 73-year-old female with PMH of hypertension, hypothyroidism, diabetes mellitus presents the ED after mechanical fall. In the ED, she was noted to be hypertensive BP of 187/89. Vital signs were otherwise stable. CBC showed a leukocytosis of 21.8. Coagulation panel showed PTT of 19.4. EKG showed sinus rhythm with ventricular rate of 72 along with Q waves. Chest x-ray showed cardiomegaly with mild pulmonary vascular congestion. Shoulder x-ray showed displaced fracture of left proximal humerus and inferior aspect of the glenoid. Pelvis x-ray and CT showed displaced left proximal femoral intratrochanteric fracture. Patient was admitted under orthopedic surgery with [facility] on consult. She underwent Left hip intertrochanteric fracture closed reduction and intramedullary nailing on 01/28. 01/29 Patient was seen and examined. She is sitting up in a chair. She reports uncontrolled pain in her left hip and shoulder. She denies any other complaints. Would like to go home on discharge. CBC shows hemoglobin of 9.5. BMP shows glucose 127. Hemoglobin A1c is 6.7. Urinalysis shows large leukocyte esterase. General: non toxic, no distress, appears at stated age Derm: warm, dry Head: atraumatic, normocephalic, symmetric Eyes: EOMI, no lid lag, anicteric sclera Cardiovascular: S1S2 reg, no murmur Lungs: CTA bilateral, no rhonchi, no rales , no accessory muscle use Ext: no gross muscle atrophy, no edema, no contractures Neuro: no focal neuro deficits Psych: Alert, oriented, appropriate affect Acute blood loss anemia Leukocyosis Abnormal urinalysis Diabetes mellitus Hypertension Hypothyroidism Based on my assessment of this patient, this patient meets a moderate complexity level of care. Patient has a new diagnosis of displaced fracture of left proximal humerus and inferior aspect of the glenoid along with displaced left proximal femoral intratrochanteric fracture with uncertain prognosis. She underwent Left hip intertrochanteric fracture closed reduction and intramedullary nailing on 01/28. Pain control with [place] and Dilaudid PRN. PT and OT has been consulted. No indication for antibiotics for abnormal UA as patient is not symptomatic. Leukocytosis is likely reactive with no signs of active infection. Diabetes mellitus: Low dose insulin sliding scale. Accuchecks ACHS. Hypertension: Atenolol 50 mg PO QD. Hypothyroidism: Synthroid 25 mcg PO QD. Heparin SQ for DVT prophylaxis. FULL CODE. I have reviewed the following [employer] operations consultant notes: Orthopedic surgery note reviewed. I have reviewed the results of the following tests: CBC, BMP, UA I have ordered the following tests: CBC tomorrow morning. I have discussed the care of this patient with the following independent historian: I have independently interpreted the following test below: I have discussed the management of this patient with the following physician: Objective - Vital Signs Vital signs: Vital Signs Temp 98.9 F 01/29/23 06:50 Pulse 69 01/29/23 06:50 Resp 16 01/29/23 06:50 BP 123/73 01/29/23 06:50 Pulse Ox 98 01/29/23 06:50 FiO2 Intake & Output 01/28/23 01/29/23 01/29/23 18:59 06:59 18:59 Intake Total 1000 850 Output Total 1150 350 Balance -150 -350 850 Weight 68.039 kg Intake: IV 1000 Intake, IV Titration 850 Amount Lactated Ringers 1,000 ml 800 @ 100 mls/hr IV .Q10H [facility] Rx#:[id number] ceFAZolin 2 gm In Sodium 50 Chloride 0.9% 50 ml @ 100 mls/hr IVPB Q8H [facility] Rx#: [id number] Output: Urine 1100 350 Estimated Blood Loss 50 Other: Voiding Method Indwelling Catheter Indwelling Catheter - Labs CBC & Chem 7: 01/29/23 05:30 01/29/23 05:30 Labs: Abnormal Lab Results - Last 24 Hours (Table) 01/28/23 01/28/23 01/29/23 Range/Units 16:50 20:18 03:53 RBC (4.10-5.20) X 10*6/uL Hgb (12.0-15.0) d/dL Hct (37.2-46.3) % MCV (80.0-97.0) [place] MCHC (32.0-37.0) d/dL Glucose (70-110) mg/dL POC Glucose (mg/dL) 119 H 129 H (70-110) mg/dL Hemoglobin A1c (<=6.0) % Calcium (8.7-10.3) mg/dL Urine Appearance Cloudy H (Clear) Ur Specific [place] 1.038 H (1.001-1.035) Urine Protein 1+ H (Negative) Urine Ketones 1+ H (Negative) Urine Blood Moderate H (Negative) Ur Leukocyte Esterase Large H (Negative) Urine RBC 56 H (0-5) /hpf Urine WBC 148 H (0-5) /hpf Urine Bacteria Rare H (None) /hpf Urine Mucus Rare H (None) /hpf 01/29/23 01/29/23 01/29/23 Range/Units 05:30 05:30 05:30 RBC 3.05 L (4.10-5.20) X 10*6/uL Hgb 9.5 L (12.0-15.0) d/dL Hct 29.8 L (37.2-46.3) % MCV 97.7 H (80.0-97.0) FL MCHC 31.9 L (32.0-37.0) d/dL Glucose 127 H (70-110) mg/dL POC Glucose (mg/dL) (70-110) mg/dL Hemoglobin A1c 6.7 H (<=6.0) % Calcium 8.3 L (8.7-10.3) mg/dL Urine Appearance (Clear) Ur Specific [place] (1.001-1.035) Urine Protein (Negative) Urine Ketones (Negative) Urine Blood (Negative) Ur Leukocyte Esterase (Negative) Urine RBC (0-5) /hpf Urine WBC (0-5) /hpf Urine Bacteria (None) /hpf Urine Mucus (None) /hpf 01/29/23 01/29/23 Range/Units 05:53 11:13 RBC (4.10-5.20) X 10*6/uL Hgb (12.0-15.0) d/dL Hct (37.2-46.3) % MCV (80.0-97.0) FL MCHC (32.0-37.0) d/dL Glucose (70-110) mg/dL POC Glucose (mg/dL) 133 H 164 H (70-110) mg/dL Hemoglobin A1c (<=6.0) % Calcium (8.7-10.3) mg/dL Urine Appearance (Clear) Ur Specific [place] (1.001-1.035) Urine Protein (Negative) Urine Ketones (Negative) Urine Blood (Negative) Ur Leukocyte Esterase (Negative) Urine RBC (0-5) /hpf Urine WBC (0-5) /hpf Urine Bacteria (None) /hpf Urine Mucus (None) /hpf
[2023-01-29 16:38] LABS: Glucose,Whole Blood 98 mg/dL (70-110)
[2023-01-29] MEDS: SENNOSIDES-DOCUSATE SODIUM 1 EACH TAB PO SCH (20:32)
[2023-01-29 21:30] LABS: Glucose,Whole Blood 121 mg/dL (70-110)
[2023-01-30] MEDS: LACTATED RINGERS 1,000 ML IV SCH ×2 (00:17→12:39)
[2023-01-30] MEDS: HEPARIN SODIUM,PORCINE/PF 5,000 UNIT/0.5 ML SYRINGE SQ SCH ×4 (00:17→23:49)
[2023-01-30] MEDS: HYDROcodone/APAP 5-325MG 1 EACH TAB PO PRN ×4 (02:41→20:05)
[2023-01-30 05:50] LABS: Glucose,Whole Blood 132 mg/dL (70-110)
[2023-01-30] MEDS: INSULIN ASPART (NovoLOG) 100 UNIT/ML VIAL SQ SCH ×4 (05:52→20:40)
[2023-01-30] MEDS: LEVOTHYROXINE 25 MCG TAB PO SCH (05:53)
[2023-01-30] MEDS: MAGNESIUM HYDROXIDE 2,400 MG/30 ML CUP PO PRN (07:50)
[2023-01-30] MEDS: MULTIVITAMINS, THERA 1 EACH TAB PO SCH (07:51)
[2023-01-30] MEDS: atenoloL 50 MG TAB PO SCH (07:51)
[2023-01-30 11:16] LABS: Glucose,Whole Blood 172 mg/dL (70-110)
--- NOTE | 2023-01-30 11:24 | P.PN ---
Subjective Progress Note Date: 01/30/23 No new complaints today. Gen: awake, alert HEENT: normocephalic, atraumatic, good hearing acuity, moist mucous membranes Resp: good air exchange, breathing comfortably with no accessory muscle use CVS: good distal perfusion x 4, GI: soft, NTTP, ND : no SPT, no CVAT, gaxiola catheter not present MSK: no pitting edema, no clubbing Neuro: non-focal, moving all extremities Psych: cooperative, euthymic mood 73-year-old female with PMH of hypertension, hypothyroidism, diabetes mellitus presented to the ED after mechanical fall. In the ED, she was noted to be hypertensive BP of 187/89. Vital signs were otherwise stable. CBC showed a leukocytosis of 21.8. Coagulation panel showed PTT of 19.4. EKG showed sinus rhythm with ventricular rate of 72 along with Q waves. Chest x-ray showed cardiomegaly with mild pulmonary vascular congestion. Shoulder x-ray showed displaced fracture of left proximal humerus and inferior aspect of the glenoid. Pelvis x-ray and CT showed displaced left proximal femoral intratrochanteric fracture. Patient was admitted under orthopedic surgery with [facility] on consult. She underwent Left hip intertrochanteric fracture closed reduction and intramedullary nailing on 01/28. Assessment: Acute blood loss anemia Leukocyosis Abnormal urinalysis Diabetes mellitus Hypertension Hypothyroidism Plan: Today, patient is afebrile, 116/72, heart rate 74, 98% on 2 L nasal cannula Blood sugars have ranged between 98 and 172 Physical therapy note reviewed, recommend discharge to subacute rehab due to poor functional mobility Discussed the case with case management, patient will require rehab, working on planning Continue [place] when necessary for pain control Continue home levothyroxine Continue morphine when necessary for breakthrough pain Continue home atenolol Patient is full code Objective - Vital Signs Vital signs: Vital Signs Temp 98.2 F 01/30/23 07:15 Pulse 74 01/30/23 07:15 Resp 16 01/30/23 07:15 BP 116/72 01/30/23 07:15 Pulse Ox 98 01/30/23 07:15 FiO2 Intake & Output 01/29/23 01/30/23 01/30/23 18:59 06:59 18:59 Intake Total 850 800 Output Total 2150 Balance 850 -2150 800 Intake: Intake, IV Titration 850 800 Amount Lactated Ringers 1,000 ml 800 800 @ 100 mls/hr IV .Q10H [facility] Rx#:[id number] ceFAZolin 2 gm In Sodium 50 Chloride 0.9% 50 ml @ 100 mls/hr IVPB Q8H [facility] Rx#: [id number] Output: Urine 2150 Other: Voiding Method Indwelling Catheter Indwelling Catheter - Labs CBC & Chem 7: 01/29/23 05:30 01/29/23 05:30 Labs: Abnormal Lab Results - Last 24 Hours (Table) 01/29/23 01/30/23 01/30/23 Range/Units 21:26 05:44 11:15 POC Glucose (mg/dL) 121 H 132 H 172 H (70-110) mg/dL
--- NOTE | 2023-01-30 13:40 | P.PN ---
Subjective Progress Note Date: 01/30/23 This is a 73-year-old female who is status post closed reduction and intramedullary nailing of the left hip by Dr. Mario. This is postoperative day #1 and patient is seen and evaluated at bedside today. Patient denies any new complaints today and she states that her pain is well-controlled. Patient states that she is maintaining the sling to left upper extremity. Objective - Vital Signs Vital signs: Vital Signs Temp 98.2 F 01/30/23 07:15 Pulse 74 01/30/23 07:15 Resp 16 01/30/23 07:15 BP 116/72 01/30/23 07:15 Pulse Ox 98 01/30/23 07:15 FiO2 Intake & Output 01/29/23 01/30/23 01/30/23 18:59 06:59 18:59 Intake Total 850 800 Output Total 2150 Balance 850 -2150 800 Intake: Intake, IV Titration 850 800 Amount Lactated Ringers 1,000 ml 800 800 @ 100 mls/hr IV .Q10H [facility] Rx#:[id number] ceFAZolin 2 gm In Sodium 50 Chloride 0.9% 50 ml @ 100 mls/hr IVPB Q8H [facility] Rx#: [id number] Output: Urine 2150 Other: Voiding Method Indwelling Catheter Indwelling Catheter - Exam Vital signs are stable. Patient is in no acute distress and is alert and oriented 3. Calf is soft and nontender to palpation. Dressing is clean, dry, and intact. Patient has full foot and ankle motion without pain or difficulty. Sensation intact. Neurovascular status and circulatory status are intact. Sling intact to left upper extremity. Left upper extremity is warm and well perfused. - Labs CBC & Chem 7: 01/29/23 05:30 01/29/23 05:30 Labs: Abnormal Lab Results - Last 24 Hours (Table) 01/29/23 01/30/23 01/30/23 Range/Units 21:26 05:44 11:15 POC Glucose (mg/dL) 121 H 132 H 172 H (70-110) mg/dL Assessment and Plan Assessment: Status post closed reduction and intramedullary nailing of the left hip. (1) Fall Current Visit: Yes Status: Acute Code(s): W19.XXXA - UNSPECIFIED FALL, INITIAL ENCOUNTER SNOMED Code(s): 9594126 (2) Fracture of glenoid process of left scapula Current Visit: Yes Status: Acute Code(s): S42.142A - DISP FX OF GLENOID CAVITY OF SCAPULA, LEFT SHOULDER, INIT SNOMED Code(s): 9113231 (3) Fracture of head of left humerus Current Visit: Yes Status: Acute Code(s): S42.292A - OTH DISP FX OF UPPER END OF LEFT HUMERUS, INIT FOR CLOS FX SNOMED Code(s): 333090604 (4) Intertrochanteric fracture of left hip Current Visit: Yes Status: Acute Code(s): S72.142A - DISPLACED INTERTROCHANTERIC FRACTURE OF LEFT FEMUR, INIT SNOMED Code(s): 063374565 Plan: Continue routine postop care and pain control. Continue anticoagulation per internal medicine. Weightbearing as tolerated with a walker. Appreciate input from medicine. Anticipate discharge to the ECF in the next 24-48 hours.
[2023-01-30 16:18] LABS: Glucose,Whole Blood 157 mg/dL (70-110)
[2023-01-30 16:40] LABS: Basophils # (A) 0.02 X 10*3/uL (0.00-0.10); Basophils % (A) 0.2 %; Eosinophils # (A) 0.28 X 10*3/uL (0.04-0.35); HCT 28.2 % (37.2-46.3); Lymphocytes # (A) 0.82 X 10*3/uL (0.90-5.00); Lymphocytes % (A) 8.9 %; MCH 30.7 pg (27.0-32.0); MCHC 31.9 d/dL (32.0-37.0); MCV 96.2 FL (80.0-97.0); Mean Platelet Volume 10.4 FL (9.5-12.2); Monocytes # (A) 0.75 X 10*3/uL (0.20-1.00); Monocytes % (A) 8.2 %; NRBC Per 100 WBC 0 X 10*3/uL (0.00-0.01); Neutrophils # (A) 7.29 X 10*3/uL (1.80-7.70); Neutrophils % (A) 79.4 %; Platelet Count 206 X 10*3/uL (140-440); RBC 2.93 X 10*6/uL (4.10-5.20); RDW 12.6 % (11.5-14.5); WBC 9.19 X 10*3/uL (4.50-10.00)
[2023-01-30] MEDS: SENNOSIDES-DOCUSATE SODIUM 1 EACH TAB PO SCH (20:05)
[2023-01-30 20:39] LABS: Glucose,Whole Blood 126 mg/dL (70-110)
[2023-01-31] MEDS: HYDROcodone/APAP 5-325MG 1 EACH TAB PO PRN ×2 (02:01→08:41)
[2023-01-31] MEDS: LACTATED RINGERS 1,000 ML IV SCH ×2 (02:02→08:20)
[2023-01-31] MEDS: LEVOTHYROXINE 25 MCG TAB PO SCH (05:40)
[2023-01-31 06:24] LABS: Glucose,Whole Blood 114 mg/dL (70-110)
[2023-01-31] MEDS: INSULIN ASPART (NovoLOG) 100 UNIT/ML VIAL SQ SCH ×2 (06:34→11:44)
[2023-01-31 07:02] VITALS: BP 134/71; PULSE 70; RESP 16; TEMP 97.9
--- NOTE | 2023-01-31 07:40 | P.DS ---
Providers Date of admission: 01/28/23 05:26 Expected date of discharge: 01/31/23 Attending physician: Brian Mario Consults: 01/28/23 05:25 Consult Physician Routine Consulting Provider: Josué Araya Consult Reason/Comments: medical management Do you want consulting provider notified?: Already Contacted Primary care physician: Brandon Kelley - Discharge Diagnosis(es) (1) Fall Current Visit: Yes Status: Acute (2) Fracture of head of left humerus Current Visit: Yes Status: Acute (3) Intertrochanteric fracture of left hip Current Visit: Yes Status: Acute (4) Fracture of glenoid process of left scapula Current Visit: Yes Status: Acute Hospital Course: This is a 73-year-old female who presented to the emergency department on 01/28/2023 after falling and sustaining injury to her left hip and left shoulder. She states that her shoe got caught on the hardwood floor and she tri pped. We were consulted for orthopedic evaluation of her left shoulder and left hip fractures. She is admitted to our service for surgical intervention and care. TOn exam and x-ray in the emergency department she is found to have an intertrochanteric fracture of the left hip. She also has a comminuted proximal humerus fracture as well as inferior glenoid fracture of the left shoulder. She is admitted to our service for surgical intervention and care. Patient is taken to surgery for close reduction and insertion of intertrochanteric nail of the left hip on 01/28/2023. The procedure was performed without complication or sequelae. The patient is doing fairly well postoperatively. Vital signs and labs are stable on postoperative day #3. Patient is discharged to inpatient rehab in good condition. Please see med rec for accurate list of discharge medications. She will follow-up with Dr. Schumacher's office in [place] for evaluation of her shoulder on 02/09/2023 at 11:30 AM. Patient Condition at Discharge: Serious Plan - Discharge Summary Discharge Rx Participant: No New Discharge Prescriptions: New HYDROcodone/APAP 5-325MG [[place] 5-325] 1 - 2 tab PO Q6HR PRN #32 tab PRN Reason: Pain Sennosides-Docusate Sodium [Senokot-S] 1 tab PO BID #60 tablet Ondansetron Odt [Zofran Odt] 4 mg PO Q8HR PRN #14 tab PRN Reason: Nausea Aspirin [Adult Low Dose Aspirin EC] 81 mg PO BID #1 tab No Action Levothyroxine Sodium [Synthroid] 25 mcg PO DAILY glipiZIDE [glipiZIDE ER] 5 mg PO DAILY atenoloL [Tenormin] 50 mg PO DAILY Multivitamins, Thera [Multivitamin (formulary)] 1 tab PO DAILY Ibandronate Sodium [Boniva] 150 mg PO Q30D Vitamin D3(Unknown Dose) 1 tab PO DAILY Discharge Medication List Ibandronate Sodium [Boniva] 150 mg PO Q30D 01/28/23 [History] Levothyroxine Sodium [Synthroid] 25 mcg PO DAILY 01/28/23 [History] Multivitamins, Thera [Multivitamin (formulary)] 1 tab PO DAILY 01/28/23 [History] Vitamin D3(Unknown Dose) 1 tab PO DAILY 01/28/23 [History] atenoloL [Tenormin] 50 mg PO DAILY 01/28/23 [History] glipiZIDE [glipiZIDE ER] 5 mg PO DAILY 01/28/23 [History] Aspirin [Adult Low Dose Aspirin EC] 81 mg PO BID #1 tab 01/30/23 [Rx] HYDROcodone/APAP 5-325MG [[place] 5-325] 1 - 2 tab PO Q6HR PRN #32 tab 01/30/23 [Rx] Ondansetron Odt [Zofran Odt] 4 mg PO Q8HR PRN #14 tab 01/30/23 [Rx] Sennosides-Docusate Sodium [Senokot-S] 1 tab PO BID #60 tablet 01/30/23 [Rx] Follow up Appointment(s)/Referral(s): Brandon Kelley MD [Primary Care Provider] - 1-2 days Brian Mario MD [STAFF PHYSICIAN] - 3 Weeks Activity/Diet/Wound Care/Special Instructions: Keep Optifoam dressing intact 7 days. May shower. WBAT w [facility]. F/U with Dr Mario for the hip [address] [facility] to evaluate left shoulder. February 09 11:30am - arrive by 11:10. [id number] [address] [place], [place] Discharge Disposition: TRANSFER TO SNF/ECF
[2023-01-31] MEDS: MULTIVITAMINS, THERA 1 EACH TAB PO SCH (08:20)
[2023-01-31] MEDS: HEPARIN SODIUM,PORCINE/PF 5,000 UNIT/0.5 ML SYRINGE SQ SCH (08:39)
[2023-01-31] MEDS: MAGNESIUM HYDROXIDE 2,400 MG/30 ML CUP PO PRN (08:40)
[2023-01-31] MEDS: atenoloL 50 MG TAB PO SCH (08:44)
[2023-01-31 11:18] LABS: Glucose,Whole Blood 144 mg/dL (70-110)
--- NOTE | 2023-01-31 12:05 | P.PN ---
Subjective Progress Note Date: 01/31/23 No new complaints today. Patient is medically stable for discharge Gen: awake, alert HEENT: normocephalic, atraumatic, good hearing acuity, moist mucous membranes Resp: good air exchange, breathing comfortably with no accessory muscle use CVS: good distal perfusion x 4, GI: soft, NTTP, ND : no SPT, no CVAT, gaxiola catheter not present MSK: no pitting edema, no clubbing Neuro: non-focal, moving all extremities Psych: cooperative, euthymic mood 73-year-old female with PMH of hypertension, hypothyroidism, diabetes mellitus presented to the ED after mechanical fall. In the ED, she was noted to be h ypertensive BP of 187/89. Vital signs were otherwise stable. CBC showed a leukocytosis of 21.8. Coagulation panel showed PTT of 19.4. EKG showed sinus rhythm with ventricular rate of 72 along with Q waves. Chest x-ray showed cardiomegaly with mild pulmonary vascular congestion. Shoulder x-ray showed displaced fracture of left proximal humerus and inferior aspect of the glenoid. Pelvis x-ray and CT showed displaced left proximal femoral intratrochanteric fracture. Patient was admitted under orthopedic surgery with [facility] on consult. She underwent Left hip intertrochanteric fracture closed reduction and intramedullary nailing on 01/28. Assessment: Acute blood loss anemia Leukocyosis Abnormal urinalysis Diabetes mellitus Hypertension Hypothyroidism Plan: Today, patient is hemodynamically stable Continue [place] when necessary for pain control Continue home levothyroxine Continue morphine when necessary for breakthrough pain Continue home atenolol Home medication reconciliation completed Patient is full code Objective - Vital Signs Vital signs: Vital Signs Temp 97.9 F 01/31/23 07:01 Pulse 70 01/31/23 07:01 Resp 16 01/31/23 07:01 BP 134/71 01/31/23 07:01 Pulse Ox 96 01/31/23 07:01 FiO2 Intake & Output 01/30/23 01/31/23 01/31/23 18:59 06:59 18:59 Intake Total 800 Output Total 850 1000 250 Balance -50 -1000 -250 Intake: Intake, IV Titration 800 Amount Lactated Ringers 1,000 ml 800 @ 100 mls/hr IV .Q10H JOSHUA Rx#:[id number] Output: Urine 850 1000 250 Other: Voiding Method Indwelling Catheter Indwelling Catheter - Labs CBC & Chem 7: 01/30/23 12:37 01/29/23 05:30 Labs: Abnormal Lab Results - Last 24 Hours (Table) 01/30/23 01/30/23 01/30/23 Range/Units 12:37 16:17 20:38 RBC 2.93 L (4.10-5.20) X 10*6/uL Hgb 9.0 L (12.0-15.0) d/dL Hct 28.2 L (37.2-46.3) % MCHC 31.9 L (32.0-37.0) d/dL Lymphocytes # 0.82 L (0.90-5.00) X 10*3/uL POC Glucose (mg/dL) 157 H 126 H (70-110) mg/dL 01/31/23 01/31/23 Range/Units 06:23 11:16 RBC (4.10-5.20) X 10*6/uL Hgb (12.0-15.0) d/dL Hct (37.2-46.3) % MCHC (32.0-37.0) d/dL Lymphocytes # (0.90-5.00) X 10*3/uL POC Glucose (mg/dL) 114 H 144 H (70-110) mg/dL
[2023-01-31] MEDS: HYDROmorphone 0.5 MG/0.5 ML SYRINGE IVP PRN (12:44)
== END 2023-01-31 13:46 | DRG 481 ==
LOC: EC 03:39 → 4SSUR 05:26
PROVIDERS: ADMIT Orthopaedic Surgery; ATTEND Orthopaedic Surgery
PROC: 0QS736Z Reposition Left Upper Femur with Intramedullary Internal Fixation Device, Percutaneous Approach (ICD-10-PCS; principal; 2023-01-28 10:00)
DX: S72.142A Displaced intertrochanteric fracture of left femur, initial encounter for closed fracture (principal); D62 Acute posthemorrhagic anemia; S42.292A Other displaced fracture of upper end of left humerus, initial encounter for closed fracture; W01.190A Fall on same level from slipping, tripping and stumbling with subsequent striking against furniture, initial encounter; Y92.008 Other place in unspecified non-institutional (private) residence as the place of occurrence of the external cause; E03.9 Hypothyroidism, unspecified; I10 Essential (primary) hypertension; E11.9 Type 2 diabetes mellitus without complications; D72.829 Elevated white blood cell count, unspecified; Z90.411 Acquired partial absence of pancreas; S42.142A Displaced fracture of glenoid cavity of scapula, left shoulder, initial encounter for closed fracture; Z79.890 Hormone replacement therapy; Z79.899 Other long term (current) drug therapy
CPT/HCPCS: 36415; 71045; 72192; 73502; 80048; 81001; 83036; 85025; 85610; 85730; 86850; 86900; 86901; 93005; 96361; 96372; 96374; 96376; 99285

== ENCOUNTER 2024-12-05 22:18 | Emergency (ER) | payer MEDICARE, OTHER ==
[2024-12-05 22:46] VITALS: RESP 18; TEMP 98
--- NOTE | 2024-12-05 23:23 | ED ---
Dizziness HPI - General Source: patient, RN notes reviewed Mode of arrival: wheelchair Limitations: no limitations <Fausto Curtis - Last Filed: 12/05/24 23:23> - General Source: patient, RN notes reviewed <Monica Harris - Last Filed: 12/06/24 16:21> - General Chief Complaint: Dizziness Stated Complaint: Dizziness,blood pressure high Time Seen by Provider: 12/05/24 22:31 - History of Present Illness Initial Comments: Quick note: This is a 74-year-old female with history of hypertension presenting for dizziness at 1999 this evening. Patient states she was standing from her chair to go to the kitchen when she experienced sudden onset dizziness and sensation of presyncope with spontaneous resolution short time later. Patient notes that her blood pressure has been higher than usual following the incident. Endorses normal use of her atenolol this morning. Otherwise denies significant cardiac history. denies associated chest pain, dyspnea, palpitations, headache, vision changes, nausea/vomiting. (Fausto Curtis) 74-year-old female with history of hypertension presenting for episode of dizziness 4 hours ago. States around 8 PM this evening she stood up after sitting in her chair and began to experience sudden onset dizziness. States the sensation is described as feeling faint and felt like she was going to pass out if she did not sit down. States symptoms worsened with standing and walking and were relieved with sitting. She checked her blood pressure and found that it was high. She then began to experience some abdominal cramps and had a bout of loose stool. States while she was in the bathroom she put a cold washcloth to her face and afterwards symptoms resolved. Reports symptoms occurred for approximately 40 minutes. Denies chest pain, shortness of breath, headache, vision changes, weakness/tingling/numbness in extremities, slurred speech. States symptoms have completely resolved at this time. States she takes atenolol every morning for hypertension. Denies significant cardiac history. Denies blood thinners. (Monica Harris) - Related Data Home Medications Medication Instructions Recorded Confirmed Ibandronate Sodium [Boniva] 150 mg PO Q30D 01/28/23 01/28/23 Levothyroxine Sodium [Synthroid] 25 mcg PO DAILY 01/28/23 01/29/23 Multivitamins, Thera [Multivitamin 1 tab PO DAILY 01/28/23 01/28/23 (formulary)] Vitamin D3(Unknown Dose) 1 tab PO DAILY 01/28/23 01/28/23 atenoloL [Tenormin] 50 mg PO DAILY 01/28/23 01/28/23 glipiZIDE [glipiZIDE ER] 5 mg PO DAILY 01/28/23 01/28/23 Previous Rx's Medication Instructions Recorded Aspirin [Adult Low Dose Aspirin EC] 81 mg PO BID #1 tab 01/30/23 HYDROcodone/APAP 5-325MG [[place] 1 - 2 tab PO Q6HR PRN #32 tab 01/30/23 5-325] Ondansetron Odt [Zofran Odt] 4 mg PO Q8HR PRN #14 tab 01/30/23 Sennosides-Docusate Sodium 1 tab PO BID #60 tablet 01/30/23 [Senokot-S] Allergies Allergy/AdvReac Type Severity Reaction Status Date / Time No Known Allergies Allergy Verified 12/05/24 22:41 Review of Systems ROS Other: All systems not noted in ROS Statement are negative. <Fausto Curtis - Last Filed: 12/05/24 23:23> ROS Other: All systems not noted in ROS Statement are negative. <Monica Harris - Last Filed: 12/06/24 16:21> ROS Statement: Those systems with pertinent positive or pertinent negative responses have been documented in the HPI. Past Medical History Past Medical History: Cancer, Diabetes Mellitus, Hypertension, Osteoarthritis (OA), Thyroid Disorder History of Any Multi-Drug Resistant Organisms: None Reported Past Surgical History: Hysterectomy, Orthopedic Surgery Additional Past Surgical History / Comment(s): Whipple , left hip Past Anesthesia/Blood Transfusion Reactions: No Reported Reaction Past Psychological History: No Psychological Hx Reported Smoking Status: Never smoker Past Alcohol Use History: None Reported Past Drug Use History: None Reported <Fausto Curtis - Last Filed: 12/05/24 23:23> General Exam Limitations: no limitations <Fausto Curtis - Last Filed: 12/05/24 23:23> General appearance: alert, in no apparent distress Head exam: Present: atraumatic, normocephalic, normal inspection Eye exam: Present: normal appearance, PERRL, EOMI. Absent: scleral icterus, conjunctival injection, periorbital swelling ENT exam: Present: normal exam, mucous membranes moist Respiratory exam: Present: normal lung sounds bilaterally. Absent: respiratory distress, wheezes, rales, rhonchi, stridor Cardiovascular Exam: Present: regular rate, normal rhythm, normal heart sounds. Absent: systolic murmur, diastolic murmur, rubs, gallop, clicks GI/Abdominal exam: Present: soft, normal bowel sounds. Absent: distended, tenderness, guarding, rebound, rigid Extremities exam: Present: normal inspection, full ROM, normal capillary refill. Absent: tenderness, pedal edema, joint swelling Neurological exam: Present: alert, oriented X3, CN II-XII intact Psychiatric exam: Present: normal affect, normal mood Skin exam: Present: warm, dry, intact, normal color. Absent: rash <Monica Harris - Last Filed: 12/06/24 16:21> - General Exam Comments Initial Comments: Visual Physical Exam Vital signs reviewed General: Well-appearing, nontoxic, no acute distress. Head: Normocephalic, atraumatic Eyes: PERRLA, EOMI ENT: Airway patent Chest: Nonlabored breathing Skin: No visual rash, normal skin tone Neuro: Alert and oriented 3 Musculoskeletal: No gross abnormalities (Fausto Curtis) Course Vital Signs 12/05/24 12/06/24 12/06/24 22:42 00:05 01:30 Temperature 98.0 F Pulse Rate 81 81 92 Respiratory 18 18 18 Rate Blood Pressure 191/91 167/112 160/84 O2 Sat by Pulse 96 96 Oximetry 12/06/24 03:05 Temperature Pulse Rate 80 Respiratory 18 Rate Blood Pressure 144/99 O2 Sat by Pulse 99 Oximetry EKG Findings - EKG Results: EKG: interpreted by ERMD (EKG reveals normal sinus rhythm with inverted T waves in lead III. Ventricular rate 73 bpm, KS interval 187, QRS duration 96, QT/QTc 369/395) <Monica Harris - Last Filed: 12/06/24 16:21> Medical Decision Making <Fausto Curtis - Last Filed: 12/05/24 23:23> - Lab Data Result diagrams: 12/05/24 22:56 12/05/24 22:56 <Monica Harris - Last Filed: 12/06/24 16:21> - Medical Decision Making I completed the quick note portion of this chart signed Fausto Curtis PA-C (Fausto Curtis) Was pt. sent in by a medical professional or institution (, [facility], [employer], urgent care, hospital, or alf...) When possible be specific @ -No Did you speak to anyone other than the patient for history (EMS, parent, family, police, friend...)? What history was obtained from this source @ -No Did you review nursing and triage notes (agree or disagree)? Why? @ -I reviewed and agree with nursing and triage notes Were old charts reviewed (outside hosp., previous admission, EMS record, old EKG, old radiological studies, urgent care reports/EKG's, alf records)? Report findings @ -No old charts were reviewed Differential Diagnosis (chest pain, altered mental status, abdominal pain women, abdominal pain men, vaginal bleeding, weakness, fever, dyspnea, syncope, headache, dizziness, GI bleed, back pain, seizure, CVA, palpatations, mental health, musculoskeletal)? @ -Differential Dizziness: Benign paroxysmal positional Vertigo, Meniere's disease, otitis media, acoustic neuroma, vertebrobasilar insufficiency, cerebellar stroke, encephalitis, hypovolemic, arrhythmia, coronary artery syndrome, anemia, this is not meant to be an all-inclusive list EKG interpreted by me (3pts min.). @ -As above X-rays interpreted by me (1pt min.). @ -Chest x-ray reveals no acute process CT interpreted by me (1pt min.). @ -None done U/S interpreted by me (1pt. min.). @ -None done What testing was considered but not performed or refused? (CT, X-rays, U/S, labs)? Why? @ -None What meds were considered but not given or refused? Why? @ -None Did you discuss the management of the patient with other professionals (professionals i.e. [facility], [employer] REPAIRER, lab, RT, psych nurse, social security specialist, preparing box tender, teacher, ammunition officer, bottle caser)? Give summary @ -No Was smoking cessation discussed for >3mins.? @ -No Was critical care preformed (if so, how long)? @ -No Were there social determinants of health that impacted care today? How? (Homelessness, low income, unemployed, alcoholism, drug addiction, transportation, low edu. Level, literacy, decrease access to med. care, fci, rehab)? @ -No Was there de-escalation of care discussed even if they declined (Discuss DNR or withdrawal of care, Hospice)? DNR status @ -No What co-morbidities impacted this encounter? (DM, HTN, Smoking, COPD, CAD, Cancer, CVA, ARF, Chemo, Hep., AIDS, mental health diagnosis, sleep apnea, morbid obesity)? @ -None Was patient admitted / discharged? Hospital course, mention meds given and route, prescriptions, significant lab abnormalities, going to OR and other pertinent info. @ -Discharge. 74-year-old female presenting for episode of dizziness worse with movement. States she had a bowel movement and symptoms resolved. She is currently asymptomatic. Denies chest pain or shortness of breath. She is hypertensive at 191/91. No acute distress, well-appearing. Neurological examination unremarkable. Patient is provided with IV fluids and hydralazine. Lab work unremarkable. Urinalysis unremarkable. Chest x-ray reveals no acute process. Repeat blood pressure 160/84. Lab work unremarkable, troponin undetectable, urinalysis negative for urinary tract infection. Chest x-ray reveals no acute process. Upon reevaluation, patient remains asymptomatic and feels stable for discharge. Appropriate return precautions and close follow-up care discussed with patient and family. They are agreeable to plan. Case was discussed with my ED attending Dr. Ken. Undiagnosed new problem with uncertain prognosis? @ -No Drug Therapy requiring intensive monitoring for toxicity (Heparin, Nitro, Insulin, Cardizem)? @ -No Were any procedures done? @ -No Diagnosis/symptom? @ -Dizziness, hypertension Acute, or Chronic, or Acute on Chronic? @ -Acute Uncomplicated (without systemic symptoms) or Complicated (systemic symptoms)? @ -Uncomplicated Side effects of treatment? @ -No Exacerbation, Progression, or Severe Exacerbation? @ -No Poses a threat to life or bodily function? How? (Chest pain, [place], [place], pneumonia, PE, COPD, DKA, ARF, appy, cholecystitis, CVA, Diverticulitis, Homicidal, Suicidal, threat to staff... and all critical care pts) @ -No (Monica Harris) - Lab Data Lab Results 12/05/24 12/05/24 12/05/24 Range/Units 22:56 22:56 22:56 WBC 8.94 (4.50-10.00) 10*3/uL RBC 4.31 (4.10-5.20) 10*6/uL Hgb 13.5 (12.0-15.0) g/dL Hct 39.1 (37.2-46.3) % MCV 90.7 (80.0-97.0) fL MCH 31.3 (27.0-32.0) pg MCHC 34.5 (32.0-37.0) g/dL Plt Count 369 (140-440) 10*3/uL MPV 9.8 (9.5-12.2) fL Immature Gran % (Auto) 0.3 % Neutrophils % 84.1 % Lymphocytes % 9.6 % Monocytes % 4.0 % Eosinophils % 1.7 % Basophils % 0.3 % Immature Gran # 0.03 (0.00-0.04) 10*3/uL Neutrophils # 7.51 (1.80-7.70) 10*3/uL Lymphocytes # 0.86 L (0.90-5.00) 10*3/uL Monocytes # 0.36 (0.20-1.00) 10*3/uL Eosinophils # 0.15 (0.04-0.35) 10*3/uL Basophils # 0.03 (0.00-0.10) 10*3/uL PT 10.2 (10.0-12.5) sec INR 0.9 (<1.2) APTT 22.1 (22.0-30.0) sec Sodium 137 (137-145) mmol/L Potassium 4.2 (3.5-5.1) mmol/L Chloride 102 (98-107) mmol/L Carbon Dioxide 22 (22-30) mmol/L Anion Gap 13 mmol/L BUN 12 (7-17) mg/dL Creatinine 0.52 (0.52-1.04) mg/dL Est GFR (CKD-EPI)AfAm >90 (>60 ml/min/1.73 sqM) Est GFR (CKD-EPI)NonAf >90 (>60 ml/min/1.73 sqM) Glucose 148 H (74-99) mg/dL Calcium 11.5 H (8.4-10.2) mg/dL Total Bilirubin 0.4 (0.2-1.3) mg/dL AST 21 (14-36) U/L ALT 24 (4-34) U/L Alkaline Phosphatase 110 (38-126) U/L Troponin I (0.000-0.034) ng/mL Total Protein 7.3 (6.3-8.2) g/dL Albumin 4.7 (3.5-5.0) g/dL Urine Color Urine Appearance (Clear) Urine pH (5.0-8.0) Ur Specific [place] (1.001-1.035) Urine Protein (Negative) Urine Glucose (UA) (Negative) Urine Ketones (Negative) Urine Blood (Negative) Urine Nitrite (Negative) Urine Bilirubin (Negative) Urine Urobilinogen (<2.0) mg/dL Ur Leukocyte Esterase (Negative) Urine RBC (0-5) /hpf Urine WBC (0-5) /hpf Ur Squamous Epith Cells (0-4) /hpf Urine Mucus (None) /hpf 12/05/24 12/06/24 Range/Units 22:56 00:25 WBC (4.50-10.00) 10*3/uL RBC (4.10-5.20) 10*6/uL Hgb (12.0-15.0) g/dL Hct (37.2-46.3) % MCV (80.0-97.0) fL MCH (27.0-32.0) pg MCHC (32.0-37.0) g/dL Plt Count (140-440) 10*3/uL MPV (9.5-12.2) fL Immature Gran % (Auto) % Neutrophils % % Lymphocytes % % Monocytes % % Eosinophils % % Basophils % % Immature Gran # (0.00-0.04) 10*3/uL Neutrophils # (1.80-7.70) 10*3/uL Lymphocytes # (0.90-5.00) 10*3/uL Monocytes # (0.20-1.00) 10*3/uL Eosinophils # (0.04-0.35) 10*3/uL Basophils # (0.00-0.10) 10*3/uL PT (10.0-12.5) sec INR (<1.2) APTT (22.0-30.0) sec Sodium (137-145) mmol/L Potassium (3.5-5.1) mmol/L Chloride (98-107) mmol/L Carbon Dioxide (22-30) mmol/L Anion Gap mmol/L BUN (7-17) mg/dL Creatinine (0.52-1.04) mg/dL Est GFR (CKD-EPI)AfAm (>60 ml/min/1.73 sqM) Est GFR (CKD-EPI)NonAf (>60 ml/min/1.73 sqM) Glucose (74-99) mg/dL Calcium (8.4-10.2) mg/dL Total Bilirubin (0.2-1.3) mg/dL AST (14-36) U/L ALT (4-34) U/L Alkaline Phosphatase (38-126) U/L Troponin I <0.012 (0.000-0.034) ng/mL Total Protein (6.3-8.2) g/dL Albumin (3.5-5.0) g/dL Urine Color Colorless Urine Appearance Clear (Clear) Urine pH 6.5 (5.0-8.0) Ur Specific [place] 1.007 (1.001-1.035) Urine Protein Negative (Negative) Urine Glucose (UA) Negative (Negative) Urine Ketones Negative (Negative) Urine Blood Negative (Negative) Urine Nitrite Negative (Negative) Urine Bilirubin Negative (Negative) Urine Urobilinogen <2.0 (<2.0) mg/dL Ur Leukocyte Esterase Moderate H (Negative) Urine RBC <1 (0-5) /hpf Urine WBC 1 (0-5) /hpf Ur Squamous Epith Cells 1 (0-4) /hpf Urine Mucus Rare H (None) /hpf Disposition <Fausto Curtis - Last Filed: 12/05/24 23:23> Is patient prescribed a controlled substance at d/c from ED?: No Time of Disposition: 02:47 <Monica Harris - Last Filed: 12/06/24 16:21> Clinical Impression: Dizziness, Hypertension Disposition: HOME SELF-CARE Condition: Stable Instructions (If sedation given, give patient instructions): Dizziness (ED) Additional Instructions: Please return to the Emergency Department if symptoms worsen or any other concerns. Referrals: Brandon Kelley MD [Primary Care Provider] - 1-2 days
[2024-12-05 23:28] LABS: Basophils # (A) 0.03 10*3/uL (0.00-0.10); Basophils % (A) 0.3 %; Eosinophils # (A) 0.15 10*3/uL (0.04-0.35); Eosinophils % (A) 1.7 %; HCT 39.1 % (37.2-46.3); HGB 13.5 g/dL (12.0-15.0); Lymphocytes # (A) 0.86 10*3/uL (0.90-5.00); Lymphocytes % (A) 9.6 %; MCH 31.3 pg (27.0-32.0); MCHC 34.5 g/dL (32.0-37.0); MCV 90.7 fL (80.0-97.0); Mean Platelet Volume 9.8 fL (9.5-12.2); Monocytes # (A) 0.36 10*3/uL (0.20-1.00); Neutrophils # (A) 7.51 10*3/uL (1.80-7.70); Neutrophils % (A) 84.1 %; Platelet Count 369 10*3/uL (140-440); RBC 4.31 10*6/uL (4.10-5.20); RDW 12.7 % (11.5-14.5); WBC 8.94 10*3/uL (4.50-10.00)
[2024-12-05 23:41] LABS: ALT 24 U/L (4-34); AST 21 U/L (14-36); African American GFR (CKD) >90 (>60 ml/min/1.73 sqM); Albumin 4.7 g/dL (3.5-5.0); Alkaline Phosphatase 110 U/L (38-126); Anion Gap 13 mmol/L; Blood Urea Nitrogen 12 mg/dL (7-17); Calcium 11.5 mg/dL (8.4-10.2); Carbon Dioxide 22 mmol/L (22-30); Chloride 102 mmol/L (98-107); Glucose 148 mg/dL (74-99); Non-African American GFR(CKD) >90 (>60 ml/min/1.73 sqM); Potassium 4.2 mmol/L (3.5-5.1); Sodium 137 mmol/L (137-145); Total Bilirubin 0.4 mg/dL (0.2-1.3); Total Protein 7.3 g/dL (6.3-8.2)
[2024-12-05 23:44] LABS: INR 0.9 (<1.2); Partial Thromboplastin Time 22.1 sec (22.0-30.0); Prothrombin Time 10.2 sec (10.0-12.5)
[2024-12-06] MEDS: hydrALAZINE HCL 20 MG/ML 1 ML VIAL IVP STA (00:16)
[2024-12-06 00:51] LABS: Appearance,Urine Clear (Clear); Bilirubin,Urine Negative (Negative); Blood,Urine Negative (Negative); Color,Urine Colorless; Glucose,Urine (UA) Negative (Negative); Ketones,Urine Negative (Negative); Leukocyte Esterase,Urine Moderate (Negative); Mucus,Urine Rare /hpf; Nitrite,Urine Negative (Negative); PH, Urine 6.5 (5.0-8.0); Protein,Urine Negative (Negative); RBC,Urine <1 /hpf (0-5); Specific Gravity,Urine 1.007 (1.001-1.035); Squamous Epithelial Cell,Urine 1 /hpf (0-4); Urobilinogen,Urine <2.0 mg/dL (<2.0); WBC,Urine 1 /hpf (0-5)
--- NOTE | 2024-12-06 02:22 | XR ---
EXAM: XR Chest, 2 Views CLINICAL HISTORY: ITS.REASON XR Reason: Dizziness TECHNIQUE: Frontal and lateral views of the chest. COMPARISON: No relevant prior studies available. FINDINGS: Lungs: No consolidation or mass. Pleural space: No effusion. Heart: cardiomegaly. Bones/joints: No acute findings. IMPRESSION: No acute cardiopulmonary process.
[2024-12-06 03:05] VITALS: BP 144/99; PULSE 80
== END 2024-12-06 03:06 | disposition home or self-care (01) ==
LOC: EC 22:18
DX: I10 Essential (primary) hypertension (principal); Z79.899 Other long term (current) drug therapy
CPT/HCPCS: 36415; 93005; 80053; 84484; 85025; 85610; 85730; 81001; 71046; 99284; 96374; J0360